=== PATIENT | female | born 1985 ===

== ENCOUNTER 2019-04-03 14:30 | Emergency (ER) | payer SELFPAY | END 2019-04-03 16:00 | disposition home or self-care (01) | LOC: ERS 14:30 | DX: J10.1 Influenza due to other identified influenza virus with other respiratory manifestations (principal); I10 Essential (primary) hypertension; F32.9 Major depressive disorder, single episode, unspecified; F17.210 Nicotine dependence, cigarettes, uncomplicated; Z71.6 Tobacco abuse counseling | CPT/HCPCS: 87804; 99406 ==